=== PATIENT | male | born 1975 | race Caucasian/White ===

== ENCOUNTER 2017-03-27 20:48 | Emergency (ER) | payer BC ==
--- OUTSIDE RECORDS SUMMARY | 2017-03-27 21:34 | XMS REPORT ---
:1975 External Reference #:[id number] Author Organization [facility] Address [address] [address] Phone [phone] Care Team Providers Name Role Phone Ashley Avila MD Primary Care Physician Unavailable Payers Type Date Identification Numbers Payment Provider Subscriber Commercial Effective: Policy Number: [employer] Zak Hernandez 2016 [id number] PayID: [id number] [address] [address] [place] [address] Problems Date Description Provider Status Onset: 12/23/2016 Current tear of medial cartilage AND/OR Zoya Gómez MD Active meniscus of knee Onset: 12/23/2016 Knee joint effusion Zoya Gómez MD Active Onset: 02/08/2017 Derangement of posterior horn of medial Zoya Gómez MD Active meniscus Family History Date Family Member(s) Problem(s) Comments General Diabetes Social History Type Date Description Comments Lives With Spouse Occupation Currently Working ETOH Use Denies alcohol use Smoking Patient is a former smoker Exercise Type/Frequency Exercises regularly Allergies, Adverse Reactions, Alerts Date Description Reaction Status Severity Comments 12/23/2016 NKDA active Medications Medication Date Status Form Strength Qnty SIG Indications Ordering Provider Diclofenac 12/24/ Active Tablets DR 75mg 60tabs take 1 by Zaneb Sodium 2017 mouth Rico, twice a MD day as needed for pain. Do not take with ibuprofen or aleve Meloxicam 12/23/ Active Tablets 15mg 30tabs take 1 a S83.231A Zaneb 2017 day with Rico, food Ibuprofen 200 00/00/ Active Tablets 200mg take 1 Unknown 0000 tablet by mouth every 6 hours with food or milk as needed for pain Naproxen 00/00/ Active Tablets 250mg 1 tablet Unknown 0000 by mouth twice a day as needed pain, with foods Triamcinolone 00/00/ Active Injection Zaneb (Kenalog) 0000 MD Rico Vital Signs Date Vital Result Comment 03/01/2017 Height 69 inches 5'9" Weight 245.00 lb BP Systolic 138 mmHg BP Diastolic 68 mmHg Respiratory Rate 18 /min Pain Level 5 BMI (Body Mass Index) 36.2 kg/m2 02/08/2017 Height 69 inches 5'9" Weight 245.00 lb per pt Heart Rate 84 /min reg BP Systolic Sitting 134 mmHg Lue, lg cuff BP Diastolic Sitting 86 mmHg Lue, lg cuff Respiratory Rate 16 /min Body Temperature 97.2 F tympanic Pain Level 5 right knee BMI (Body Mass Index) 36.2 kg/m2 12/23/2016 Height 69 inches 5'9" Weight 245.00 lb BP Systolic 122 mmHg BP Diastolic 84 mmHg Respiratory Rate 18 /min Body Temperature 97.9 F Pain Level 6 BMI (Body Mass Index) 36.2 kg/m2 Results Description No Information Procedures Description No Information Encounters Type Date Location Provider CPT E/M Dx Office Visit 02/08/2017 1:45p [facility] [place] [address] M23.321 [facility] M25.462 M25.562 Office Visit 12/23/2016 2:30p [facility] [place] [address] M25.461 [facility] M23.321 Plan of Care Future Appointment(s):04/12/2017 8:45 am - Zoya G[facility]mez MD at [facility]
[2017-03-27 21:40] VITALS: BP 118/82
--- NOTE | 2017-03-28 04:48 | ED ---
Bobby Bauman Julia, scribed for Brian Miranda MD on 03/27/17 at 2142 . Palpitations / Dysrhythmia - HPI Summary HPI Summary: This patient is a 42 year old M presenting to [facility] with a chief complaint of gradually increasing intermittent palpitations described as fluttery lasting a few seconds at a time for the past 7-10 days. Patient reports 10-15 bouts of palpitation in the last hour. Patient reports recent mild SOB, cramping between shoulders, currently resolved headache today, and a broken tooth without current pain. Patient denies chest pain. Pt states he was not symptomatic during EKG reading. He felt symptomatic, but nothing was seen on monitor. Patient works overnights and drinks 2 travel sized mugs of coffee each day. - History of Current Complaint Chief Complaint: EDDysrhythmPalp Time Seen by Provider: 03/27/17 21:36 Hx Obtained From: Patient Onset/Duration: Lasting Weeks, Worse Since - today Timing: Intermittent Episodes Lasting: - a few seconds Severity Initially: Worse Since: - today Character: Fluttering Aggravating: Caffeine - is unsure - Allergy/Home Medications Allergies/Adverse Reactions: Allergies Allergy/AdvReac Type Severity Reaction Status Date / Time No Known Allergies Allergy Verified 02/21/17 15:58 PMH/Surg Hx/FS Hx/Imm Hx Endocrine/Hematology History: Denies: Hx Diabetes, Hx Thyroid Disease Cardiovascular History: Denies: Hx Hypertension, Hx Pacemaker/ICD History: Denies: Hx Renal Disease Musculoskeletal History: Denies: Hx Rheumatoid Arthritis, Hx Osteoporosis Sensory History: Denies: Hx Hearing Aid Psychiatric History: Denies: Hx Panic Disorder - Surgical History Surgery Procedure, Year, and Place: RIGHT HAND 1996. EAR TUBES A CHILD,. TONSILLECTOMY,. EYES ( CORRECTIVE FOR CROSSED-EYED) Infectious Disease History: No Infectious Disease History: Denies: Traveled Outside the [place] in Last 30 Days - Family History Known Family History: Negative: Cardiac Disease - Social History Alcohol Use: Occasionally Substance Use Type: Reports: None Smoking Status (MU): Current Every Day Smoker Type: Cigarettes Amount Used/How Often: 1/2 PPD Review of Systems Positive: Palpitations. Negative: Chest Pain Positive: Shortness Of Breath Positive: Myalgia - between shoulders Positive: Headache - resolved All Other Systems Reviewed And Are Negative: Yes Physical Exam - Summary Physical Exam Summary: Appearance: Well appearing, no pain distress Skin: warm, dry, reflects adequate perfusion Head/face: normal Eyes: EOMI, WALDEMAR ENT: Right lower 2nd molar small dental fracture Neck: supple, non-tender Respiratory: CTA, breath sounds present Cardiovascular: RRR, pulses symmetrical , felt symptomatic but nothing seen on monitor Abdomen: non-tender, soft Bowel: present Musculoskeletal: normal, strength/ROM intact Neuro: normal, sensory motor intact, A&Ox3 Triage Information Reviewed: Yes Vital Signs On Initial Exam: Initial Vitals Temp Pulse Resp BP Pulse Ox 98.1 F 75 16 158/90 99 03/27/17 20:49 03/27/17 20:49 03/27/17 20:49 03/27/17 20:49 03/27/17 20:49 Vital Signs Reviewed: Yes Diagnostics - Vital Signs Vital Signs Temp Pulse Resp BP Pulse Ox 03/27/17 20:49 98.1 F 75 16 158/90 99 - Laboratory Lab Statement: Any lab studies that have been ordered have been reviewed, and results considered in the medical decision making process. - EKG 2053 Cardiac Rate: NL - at 77 BPM EKG Rhythm: Sinus Rhythm ST Segment: Normal EKG Interpretation: nml axis, nml intervals Course/Dx - Course Course Of Treatment: pt with "fluttering" that happens for a second at a time. These episodes happened here while on monitor with no flucuation of HR or any ectopy noted. ECG wnl. Pt asymptomatic presently. 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 F/U PMD for holter. - Diagnoses Differential Diagnosis/HQI/PQRI: Positive: Paroxymal SVT, Other - ectopy Provider Diagnoses: Heart palpitations Discharge - Discharge Plan Condition: Good Disposition: HOME Patient Education Materials: Heart Palpitations (ED) Referrals: Mirian Bardales MD [Medical Doctor] - Ashley Avila MD [Primary Care Provider] - Additional Instructions: Call first thing in the morning to arrange for HOLTER monitor. This likely can be accomplished through Dr Bardales's office. Get plenty of sleep. Avoid caffeine and alcohol. Journal your symptoms. Return if worse, new symptoms, chest pains/trouble breathing or other concerns as discussed. The documentation as recorded by the scribe, Roetzer,Anna Marie accurately reflects the service I personally performed and the decisions made by , Brian Miranda MD.
== END 2017-03-27 22:26 | disposition home or self-care (01) ==
LOC: ED 20:48
DX: R00.2 Palpitations (principal); R06.02 Shortness of breath; R51 Headache; F17.210 Nicotine dependence, cigarettes, uncomplicated
CPT/HCPCS: 93005; 99282